=== PATIENT | female | born 1985 | race African-American/Black ===

== ENCOUNTER 2022-09-19 09:21 | Day surgery (SDC) | payer BC ==
[2022-09-19] MEDS ORDERED: Depo-Medrol 40 MG/ML IM ONE (09:22)
[2022-09-19] MEDS ORDERED: LIDOCAINE HCL 1% 50 MG/5 ML VL PF IJ ONE (09:22)
[2022-09-19] MEDS ORDERED: Sodium Chloride 0.9(Preservative Free) 10 ML IJ ONE (09:22)
[2022-09-19] MEDS ORDERED: DIPRIVAN 200 MG/20 ML IV ONE (10:55)
--- NOTE | 2022-09-19 11:36 | XRAY ---
Indication: Lumbar DON. Intraoperative fluoroscopy provided for 22 seconds. 2 digital spot image submitted for interpretation demonstrates posterior needle tip projecting posterior to the L4-L5 interspace. Small amount of contrast injected for needle tip placement. Correlate with intraoperative findings/report.
--- NOTE | 2022-09-19 11:36 | XRAY ---
22 seconds of fluoroscopy was used in surgery for a lumbar DON.
[2022-09-19] MEDS ORDERED: Lactated Ringers 1,000 ML IV ONE (14:02)
== END 2022-09-19 11:30 | disposition home or self-care (01) ==
LOC: SDC-PAIN 09:21
PROVIDERS: ATTEND Psychiatry & Neurology Pain Medicine
DX: M54.16 Radiculopathy, lumbar region (principal); Z79.899 Other long term (current) drug therapy
CPT/HCPCS: 62323; 72100; 77003; 81025; J1030; J2001; J2704; Q9966